=== PATIENT | male | born 1960 | race American Indian/Alaskan Native ===

== ENCOUNTER 2021-01-29 05:57 | Emergency (ER) | payer SELFPAY ==
[2021-01-29] MEDS ORDERED: SODIUM CHLORIDE 0.9% 500 ML 500 ML IV ONE (06:05)
--- NOTE | 2021-01-29 06:06 | Emergency Department Report ---
ED General Adult HPI - General Chief complaint: Weakness Stated complaint: i have a headache and im weak PUI?: No Time Seen by Provider: 01/29/21 06:03 Source: patient, RN notes reviewed Mode of arrival: Stretcher Limitations: Physical Limitation - History of Present Illness Initial comments: The patient was evaluated in the emergency department for symptoms described in the history of present illness. He/she was evaluated in the context of the global COVID-19 pandemic, which necessitated consideration that the patient migh t be at risk for infection with the virus that causes COVID-19. Institutional protocols and algorithms that pertain to the evaluation of patients at risk for COVID-19 are in a state of rapid change based on information released by regulatory bodies including the CDC and federal and state organizations. These policies and algorithms were followed during the patient's care in the emergency department. Please note that these policies, procedures and recommendations changed on a rapid basis. EMS documentation not available at time of chart dictation This is a 60-year-old gentleman. He is not known to myself. He appears to have a history of obesity, A. fib, stroke. He states he is not compliant with Xarelto/systemic anticoagulation. He presents to the ER today via EMS, with a complaint of weakness, headache, blurry vision. The patient believes his symptoms started at 430 this morning. There is no trauma. The patient denies fever. He endorses global weakness and binocular blurry vision. He makes no complaint of chest pain, abdominal pain, new/different shortness of breath. EMS reports Accu-Chek was within normal limits in the field. The patient states that he may have taken aspirin yesterday or the day before, he is not quite certain. However, he is certain that he is not taking systemic anticoagulation, and "a very long time." -: This morning Location: head Consistency: constant Improves with: none Worsens with: none - Related Data Allergies Allergy/AdvReac Type Severity Reaction Status Date / Time No Known Allergies Allergy Unverified 01/29/21 06:46 ED Review of Systems ROS: Stated complaint: POSS STROKE Other details as noted in HPI Constitutional: malaise, weakness. denies: fever Eyes: vision change. denies: eye discharge ENT: denies: epistaxis Respiratory: denies: wheezing Cardiovascular: denies: syncope Gastrointestinal: denies: abdominal pain Neurological: headache, weakness Hematological/Lymphatic: denies: easy bleeding ED Physical Exam - General Limitations: Physical Limitation General appearance: alert, obese - Head Head exam: Present: atraumatic, normocephalic - Eye Eye exam: Present: normal appearance, PERRL, EOMI. Absent: nystagmus - ENT ENT exam: Present: normal exam, normal orophraynx, mucous membranes moist, normal external ear exam - Neck Neck exam: Present: normal inspection, full ROM. Absent: tenderness, meningismus - Respiratory Respiratory exam: Present: normal lung sounds bilaterally. Absent: respiratory distress, wheezes, rales, rhonchi, stridor, decreased breath sounds - Cardiovascular Cardiovascular Exam: Present: regular rate, irregular rhythm, normal heart sounds. Absent: bradycardia, tachycardia, systolic murmur, diastolic murmur, rubs, gallop - GI/Abdominal GI/Abdominal exam: Present: soft. Absent: distended, tenderness, guarding, pulsatile mass - Rectal Rectal exam: Present: deferred - Extremities Exam Extremities exam: Present: normal inspection, full ROM, other (2+ pulses noted in the bilateral upper and lower extremities. There is no palpable cord. negative Homans sign. Muscular compartments are soft. The pelvis is stable.). Absent: pedal edema, calf tenderness - Back Exam Back exam: Present: normal inspection, full ROM. Absent: tenderness, CVA tenderness (R), CVA tenderness (L), paraspinal tenderness, vertebral tenderness - Neurological Exam Neurological exam: Present: alert, motor sensory deficit (There is 4 out of 5 strength bilateral upper extremities, and right lower extremity. There is 3 out of 5 strength left lower extremity. There is no facial droop. The tongue is midline. Sensation is intact to light touch in 4 extremities) - Psychiatric Psychiatric exam: Present: anxious - Skin Skin exam: Present: warm, dry, intact, normal color. Absent: rash ED Course Vital Signs 01/29/21 01/29/21 01/29/21 06:30 06:46 07:00 Temperature 94.9 F L Pulse Rate 80 79 87 Respiratory 16 22 21 Rate Blood Pressure 113/60 154/82 154/82 O2 Sat by Pulse 95 96 Oximetry ED Medical Decision Making - Lab Data Result diagrams: 01/29/21 06:29 01/29/21 06:29 Vital Signs 04/10/0901/29/21 01/29/21 06:30 06:46 07:00 Temperature 94.9 F L Pulse Rate 80 79 87 Respiratory 16 22 21 Rate Blood Pressure 113/60 154/82 154/82 O2 Sat by Pulse 95 96 Oximetry Lab Results 01/29/21 01/29/21 01/29/21 Range/Units 06:29 06:29 06:29 WBC 15.8 H (4.5-11.0) K/mm3 RBC 5.56 H (3.65-5.03) M/mm3 Hgb 16.4 H (11.8-15.2) gm/dl Hct 46.5 H (35.5-45.6) % MCV 84 (84-94) fl MCH 29 (28-32) pg MCHC 35 H (32-34) % RDW 15.6 H (13.2-15.2) % Plt Count 210 (140-440) K/mm3 Lymph % (Auto) 14.7 (13.4-35.0) % [place] % (Auto) 3.4 (0.0-7.3) % Eos % (Auto) 0.4 (0.0-4.3) % Baso % (Auto) 0.4 (0.0-1.8) % Lymph # (Auto) 2.3 (1.2-5.4) K/mm3 [place] # (Auto) 0.5 (0.0-0.8) K/mm3 Eos # (Auto) 0.1 (0.0-0.4) K/mm3 Baso # (Auto) 0.1 (0.0-0.1) K/mm3 Seg Neutrophils % 81.1 H (40.0-70.0) % Seg Neutrophils # 12.8 H (1.8-7.7) K/mm3 PT 13.8 (12.2-14.9) Sec. INR 1.07 (0.87-1.13) APTT 24.3 (24.2-36.6) Sec. Thrombin Time 17.3 (15.1-19.6) Sec. Sodium (137-145) mmol/L Potassium (3.6-5.0) mmol/L Chloride (98-107) mmol/L Carbon Dioxide (22-30) mmol/L Anion Gap mmol/L BUN (9-20) mg/dL Creatinine (0.8-1.3) mg/dL Estimated GFR ml/min BUN/Creatinine Ratio % Glucose (75-100) mg/dL Calcium (8.4-10.2) mg/dL Magnesium (1.7-2.3) mg/dL Total Bilirubin (0.1-1.2) mg/dL AST (5-40) units/L ALT (7-56) units/L Alkaline Phosphatase (35-129) units/L Total Creatine Kinase 150 (55-170) units/L CK-MB (CK-2) 1.6 (0.0-4.0) ng/mL CK-MB (CK-2) Rel Index 1.0 (0-4) Troponin T < 0.010 (0.00-0.029) ng/mL Total Protein (6.3-8.2) g/dL Albumin (3.9-5) g/dL Albumin/Globulin Ratio % TSH (0.270-4.200) mlU/mL Plasma/Serum Alcohol (0-0.07) % 01/29/21 01/29/21 01/29/21 Range/Units 06:29 06:29 06:29 WBC (4.5-11.0) K/mm3 RBC (3.65-5.03) M/mm3 Hgb (11.8-15.2) gm/dl Hct (35.5-45.6) % MCV (84-94) fl MCH (28-32) pg MCHC (32-34) % RDW (13.2-15.2) % Plt Count (140-440) K/mm3 Lymph % (Auto) (13.4-35.0) % [place] % (Auto) (0.0-7.3) % Eos % (Auto) (0.0-4.3) % Baso % (Auto) (0.0-1.8) % Lymph # (Auto) (1.2-5.4) K/mm3 [place] # (Auto) (0.0-0.8) K/mm3 Eos # (Auto) (0.0-0.4) K/mm3 Baso # (Auto) (0.0-0.1) K/mm3 Seg Neutrophils % (40.0-70.0) % Seg Neutrophils # (1.8-7.7) K/mm3 PT (12.2-14.9) Sec. INR (0.87-1.13) APTT (24.2-36.6) Sec. Thrombin Time (15.1-19.6) Sec. Sodium 138 (137-145) mmol/L Potassium 3.1 L (3.6-5.0) mmol/L Chloride 101.1 (98-107) mmol/L Carbon Dioxide 25 (22-30) mmol/L Anion Gap 15 mmol/L BUN 17 (9-20) mg/dL Creatinine 0.8 (0.8-1.3) mg/dL Estimated GFR > 60 ml/min BUN/Creatinine Ratio 21 % Glucose 178 H (75-100) mg/dL Calcium 8.5 (8.4-10.2) mg/dL Magnesium 2.10 (1.7-2.3) mg/dL Total Bilirubin 1.10 (0.1-1.2) mg/dL AST 17 (5-40) units/L ALT 11 (7-56) units/L Alkaline Phosphatase 109 (35-129) units/L Total Creatine Kinase 150 (55-170) units/L CK-MB (CK-2) (0.0-4.0) ng/mL CK-MB (CK-2) Rel Index (0-4) Troponin T (0.00-0.029) ng/mL Total Protein 7.2 (6.3-8.2) g/dL Albumin 3.8 L (3.9-5) g/dL Albumin/Globulin Ratio 1.1 % TSH (0.270-4.200) mlU/mL Plasma/Serum Alcohol < 0.01 (0-0.07) % 01/29/21 Range/Units 06:29 WBC (4.5-11.0) K/mm3 RBC (3.65-5.03) M/mm3 Hgb (11.8-15.2) gm/dl Hct (35.5-45.6) % MCV (84-94) fl MCH (28-32) pg MCHC (32-34) % RDW (13.2-15.2) % Plt Count (140-440) K/mm3 Lymph % (Auto) (13.4-35.0) % [place] % (Auto) (0.0-7.3) % Eos % (Auto) (0.0-4.3) % Baso % (Auto) (0.0-1.8) % Lymph # (Auto) (1.2-5.4) K/mm3 [place] # (Auto) (0.0-0.8) K/mm3 Eos # (Auto) (0.0-0.4) K/mm3 Baso # (Auto) (0.0-0.1) K/mm3 Seg Neutrophils % (40.0-70.0) % Seg Neutrophils # (1.8-7.7) K/mm3 PT (12.2-14.9) Sec. INR (0.87-1.13) APTT (24.2-36.6) Sec. Thrombin Time (15.1-19.6) Sec. Sodium (137-145) mmol/L Potassium (3.6-5.0) mmol/L Chloride (98-107) mmol/L Carbon Dioxide (22-30) mmol/L Anion Gap mmol/L BUN (9-20) mg/dL Creatinine (0.8-1.3) mg/dL Estimated GFR ml/min BUN/Creatinine Ratio % Glucose (75-100) mg/dL Calcium (8.4-10.2) mg/dL Magnesium (1.7-2.3) mg/dL Total Bilirubin (0.1-1.2) mg/dL AST (5-40) units/L ALT (7-56) units/L Alkaline Phosphatase (35-129) units/L Total Creatine Kinase (55-170) units/L CK-MB (CK-2) (0.0-4.0) ng/mL CK-MB (CK-2) Rel Index (0-4) Troponin T (0.00-0.029) ng/mL Total Protein (6.3-8.2) g/dL Albumin (3.9-5) g/dL Albumin/Globulin Ratio % TSH 1.300 (0.270-4.200) mlU/mL Plasma/Serum Alcohol (0-0.07) % - EKG Data -: EKG Interpreted by Dc Rate: normal - EKG Data When compared to previous EKG there are: previous EKG unavailable 01/29/21 06:51 EKG interpreted at 6: 40 a.m. A. fib, ventricular rate 74 bpm. Left axis deviation, left anterior fascicular block. Low voltage in the lateral leads, QTC is prolonged. This is an abnormal EKG. This is not a STEMI. There is no prior for comparison. - Radiology Data Radiology results: pending, report reviewed, image reviewed CT HEAD WITHOUT CONTRAST INDICATION: Stroke symptoms. TECHNIQUE: All CT scans at this location are performed using CT dose reduction for ALARA by means of automated exposure control. COMPARISON: None available. FINDINGS: HEMORRHAGE: There is extensive central subarachnoid hemorrhage greatest in the cisterns. There is also intraventricular hemorrhage within the frontal horns, third, and fourth ventricles. Subarachnoid hemorrhage is also noted in the cerebellum and surrounding the brainstem. EXTRA-AXIAL SPACES: Normal in size and morphology for the patient's age. CT angio head, CT angio neck HISTORY: Stroke symptoms. COMPARISON: 01/29/2021. TECHNIQUE: CTA of the neck and head is performed after IV contrast. 3-D/MIP ref ormats were postprocessed. Percentage stenosis is determined by direct quantitative measurements of diseased internal carotid artery diameter compared with normal distal internal carotid artery reference segments or by criteria similar to NASCET where applicable. All CT scans at this location are performed using CT dose reduction for ALARA by means of automated exposure control. FINDINGS: CTA NECK: Aortic arch: No significant abnormality. Cervical vertebral arteries: No occlusion or hemodynamically significant stenosis. Common Carotid arteries: No occlusion or hemodynamically significant stenosis. Internal carotid arteries: No occlusion or hemodynamically significant stenosis. CTA HEAD: Intracranial internal carotid arteries: No occlusion or significant stenosis. Anterior cerebral arteries: No occlusion or significant stenosis. Middle cerebral arteries: No occlusion or significant stenosis. Intracranial vertebral arteries: No occlusion or significant stenosis. Basilar artery: No occlusion or significant stenosis. Posterior cerebral arteries: No occlusion or significant stenosis. 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 The nidus measures approximately 2.5 cm. Is difficult to assess which arteries feed the AVM. There appears to be multiple draining veins but there is deep drainage through a dilated right superior vermian vein which drains into the vein of [place]. There are additional draining veins which are thought to be extending into the confluence of the sinuses, transverse sinuses, and left sigmoid sinus. Additional findings: Unchanged extensive subarachnoid hemorrhage surrounding the posterior fossa and intraventricular hemorrhage. No change in ventricular caliber. IMPRESSION: 1. CTA NECK: No occlusion or significant stenosis of the carotid or vertebral arteries. 2. 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 Persistent subarachnoid hemorrhage consistent with rupture. I tried to inform Dr. Martinez of this report at the 710 am but he was intubating the patient. Signer Name: Azar Nguyen MD Signed: 01/29/2021 11:38 AM Workstation Name: [id number] - Medical Decision Making Differential diagnosis, including but not limited to: Stroke, ischemic versus hemorrhagic, migraine headache, tension headache, cluster headache Assessment and plan: 60-year-old gentleman, presenting with headache, weakness, and blurry vision. He is found to have left lower extremity weakness on my examination. A code stroke was called overhead. Patient is emergently consented by myself for CT scan of the brain, CT angiogram head and neck to evaluate arterial anatomy and pertinent neurologic anatomy. The patient was found to have evidence of a subarachnoid hemorrhage. This hospital does not have neurology critical care, or surgical capability to treat subarachnoid hemorrhage, and this is an emergency medical/surgical condition, which requires transfer to a higher level of care/tertiary care center, which can provide services at this hospital was not able to provide. Initially, we had planned on reversing patient's systemic anticoagulation, with prothrombin complex concentrate, however, patient told me that he had not taken his anticoagulant "in quite some time", therefore, no indication for prothrombin complex concentrate, or anticoagulation reversal. He was also started on Cardene, given nimodipine, and loaded with Keppra. He presented with a GCS of 15. He was seen in consultation with my stroke neurologist, we appreciate their recommendations. Given presence of subarachnoid hemorrhage/intracranial blee ding, TPA is absolutely contraindicated. We contacted neurology critical care at [place], Dr. Juan, And I discussed the patient's history, physical, pertinent examination findings, and CT scan of the brain findings. Patient is excepted to the aforementioned institution by the aforementioned physician. I discussed the need for transfer with the patient, and he provided verbal consent. Patient's laboratory studies resulted after he had already been transferred out of this emergency department, because of his subarachnoid hemorrhage. The receiving physician recommended against mannitol. He was in agreement with the other medical interventions. The patient was also found to be hypothermic, which I suspect to be secondary to environmental hypothermia. Reordered active patient rewarming. His leukocytosis is likely a stress reaction. Critical Care Time: Yes Critical care time in (mins) excluding proc time.: 65 Critical care attestation.: If time is entered above; I have spent that time in minutes in the direct care of this critically ill patient, excluding procedure time. ED Disposition Clinical Impression: Subarachnoid hemorrhage, Obesity, Visual disturbance, Weakness, Atrial fibrillation, Noncompliance, Hypothermia Disposition: [id number] [facility] IP Is pt being admited?: No Does the pt Need Aspirin: No Condition: Critical Referrals: PRIMARY CARE, [Primary Care Provider] - 3-5 Days
[2021-01-29] MEDS ORDERED: METOCLOPRAMIDE 10 MG/2 ML INJ IV ONE (06:16)
[2021-01-29] MEDS ORDERED: niCARdipine DRIP 40 MG/200 ML BAG IV ONE (06:16)
[2021-01-29] MEDS ORDERED: levETIRAcetam 1000 MG/NS 0.75% 1,000 MG/100 ML BAG IV ONE (06:16)
[2021-01-29] MEDS ORDERED: niMODipine 30 MG CAP PO ONE (06:16)
--- NOTE | 2021-01-29 06:27 | Consultation ---
History of Present Illness History of present illness: [facility] Consult Note # Demographics Consult Type: Acute Stroke Level 1 (0-4.5 hrs) Patient Location: Emergency Room First Name: Kevin Last Name: Raine Date of : 1960 Age: 60 Gender: Male Time of Initial Page (): 01/29/2021, 06:04 Time of Return Call ( Time): 01/29/2021, 06:05 # HPI History: 60M with prior stroke, atrial fibrillation not clear if on blood thinner, HTN presents with blurry vision and generalized weakness. Woke at 0430 normal, and then after shower had sudden onset of generalized weakness, blurry vision, and headache. Talks very quietly, but making sense when he talks. On Xarelto. # Scores Time of exam and NIHSS (): 01/29/2021, 06:20 Level of Consciousness 1a: [0] = Alert; keenly responsive LOC Questions 1b: [0] = Answers both questions correctly LOC Commands 1c: [0] = Performs both tasks correctly Best Gaze 2: [0] = Normal Visual 3: [0] = No visual loss Facial Palsy 4: [0] = Normal symmetrical movements Motor Arm Left 5a: [0] = No drift Motor Arm Right 5b: [0] = No drift Motor Leg Left 6a: [0] = No drift Motor Leg Right 6b: [0] = No drift Limb Ataxia 7: [0] = Absent Sensory 8: [0] = Normal Best Language 9: [0] = No aphasia Dysarthria 10: [0] = Normal Extinction and Inattention 11: [0] = No abnormality NIHSS Total: 0 Estevez Merrill SAH: [2] = nuchal rigidity, mod/severe LEDBETTER, A&O, no neurologic deficit (except CN palsy) Estevez Merrill total: 2 # Data Time Head CT personally read by me (): 01/29/2021, 06:[address]: hemorrhage, diffuse subarachnoid and intraventricular hemorrhage # Assessment Impression: Subarachnoid Hemorrhage # Plan Thrombolytic/Intervention: NOT IV Thrombolytic or IA Intervention Thrombolytic Exclusion (< 3 hour window): ICH Intraarterial Exclusion: ICH Blood Pressure Management: nicardipine Target Blood Pressure: SBP < 140 Medication: levetiracetam 1g; mannitol 1g/kg ideal body weight Hemorrhage Reversal: PCC (prothrombin complex concentrate) Additional Recommendations: HOB > 30 degrees Close monitoring of airway Disposition: transfer # Logistics Telemedicine: Interactive 2 way audio and visual telecommunication technology was utilized during this visit Electronically signed at 01/29/2021 06:26 (Eastern Time) by Joe Gilliland MD Medications and Allergies Active Meds: Active Medications Sodium Chloride (Nacl 0.9% 500 Ml) 500 mls @ 999 mls/hr IV ONCE ONE Stop: 01/29/21 06:35 Levetiracetam (Keppra 1,000 Mg/Ns 0.75% 100ml) 1,000 mg in 100 mls @ 400 mls/hr IV ONCE ONE Stop: 01/29/21 06:30 Nicardipine/Sodium Chloride (Cardene Drip 40 Mg/200 Ml) 40 mg in 200 mls @ 25 mls/hr IV ONCE ONE; Protocol Stop: 01/29/21 14:15
--- NOTE | 2021-01-29 06:33 | Cat Scan Report ---
CT HEAD WITHOUT CONTRAST INDICATION: Stroke symptoms. TECHNIQUE: All CT scans at this location are performed using CT dose reduction for ALARA by means of automated e xposure control. COMPARISON: None available. FINDINGS: HEMORRHAGE: There is extensive central subarachnoid hemorrhage greatest in the cisterns. There is als o intraventricular hemorrhage within the frontal horns, third, and fourth ventricles. Subarachnoid he morrhage is also noted in the cerebellum and surrounding the brainstem. EXTRA-AXIAL SPACES: Normal in size and morphology for the patient's age. VENTRICULAR SYSTEM: Normal in size and morphology for the patient's age. BRAIN PARENCHYMA: No acute findings. MIDLINE SHIFT OR HERNIATION: None. ORBITS: Normal as visualized. SOFT TISSUES OF HEAD: Normal. CALVARIUM: Normal. VISUALIZED PARANASAL SINUSES AND MASTOID AIR CELLS: Clear. ADDITIONAL FINDINGS: None. IMPRESSION: 1. Extensive subarachnoid hemorrhage with intraventricular extension. This is concerning for ruptured aneurysm. CTA is recommended. CODE STROKE: Time of Communication (RIVET MACHINE OPERATOR/CDT): 5:27 AM Licensed Practitioner Receiving Report: Lorraine Charge Nurse Signer Name: Frank Jara MD Signed: 01/29/2021 6:28 AM Workstation Name: [id number]
[2021-01-29 06:46] LABS: Basophils # (Auto) 0.1 K/mm3 (0.0-0.1); Basophils % (Auto) 0.4 % (0.0-1.8); Eosinophils # (Auto) 0.1 K/mm3 (0.0-0.4); Eosinophils % (Auto) 0.4 % (0.0-4.3); Hematocrit 46.5 % (35.5-45.6); Hemoglobin 16.4 gm/dl (11.8-15.2); Lymphocytes # (Auto) 2.3 K/mm3 (1.2-5.4); Lymphocytes % (Auto) 14.7 % (13.4-35.0); Mean Corpuscular HGB Conc 35 % (32-34); Mean Corpuscular Volume 84 fl (84-94); Monocytes # (Auto) 0.5 K/mm3 (0.0-0.8); Monocytes % (Auto) 3.4 % (0.0-7.3); Platelet Count 210 K/mm3 (140-440); Red Blood Count 5.56 M/mm3 (3.65-5.03); Red Cell Distribution Width 15.6 % (13.2-15.2)
--- NOTE | 2021-01-29 06:51 | XRay Report ---
CHEST 1 VIEW INDICATION: cva. COMPARISON: None. FINDINGS: Support devices: None. Heart: Normal. Lungs/Pleura: There are low lung volumes with atelectatic changes in the bases. No pleural abnormalit y. IMPRESSION: 1. No acute findings. Signer Name: Frank Jara MD Signed: 01/29/2021 6:46 AM Workstation Name: [id number]
[2021-01-29 06:59] LABS: Alanine Aminotransferase 11 units/L (7-56); Albumin 3.8 g/dL (3.9-5); BUN/Creatinine Ratio 21; Blood Urea Nitrogen 17 mg/dL (9-20); Calcium 8.5 mg/dL (8.4-10.2); Hemolysis Index 4
[2021-01-29 07:08] LABS: INR 1.07 (0.87-1.13)
[2021-01-29 07:09] LABS: Partial Thromboplastin Time 24.3 Sec. (24.2-36.6); Thrombin Time 17.3 Sec. (15.1-19.6)
[2021-01-29 07:14] VITALS: BP 154/82
[2021-01-29 08:06] LABS: Creatine Kinase MB 1.6 ng/mL (0.0-4.0)
--- NOTE | 2021-01-29 12:42 | Cat Scan Report ---
CT angio head, CT angio neck HISTORY: Stroke symptoms. COMPARISON: 01/29/2021. TECHNIQUE: CTA of the neck and head is performed after IV contrast. 3-D/MIP reformats were postproces sed. Percentage stenosis is determined by direct quantitative measurements of diseased internal su tid artery diameter compared with normal distal internal carotid artery reference segments or by crit erraphael similar to NASCET where applicable. All CT scans at this location are performed using CT dose re duction for ALARA by means of automated exposure control. FINDINGS: CTA NECK: Aortic arch: No significant abnormality. Cervical vertebral arteries: No occlusion or hemodynamically significant stenosis. Common Carotid arteries: No occlusion or hemodynamically significant stenosis. Internal carotid arteries: No occlusion or hemodynamically significant stenosis. CTA HEAD: Intracranial internal carotid arteries: No occlusion or significant stenosis. Anterior cerebral arteries: No occlusion or significant stenosis. Middle cerebral arteries: No occlusion or significant stenosis. Intracranial vertebral arteries: No occlusion or significant stenosis. Basilar artery: No occlusion or significant stenosis. Posterior cerebral arteries: No occlusion or significant stenosis. There is arteriovenous malformation seen in the posterior fossa in the right superior posterior cereb ral. The nidus measures approximately 2.5 cm. Is difficult to assess which arteries feed the AVM. The re appears to be multiple draining veins but there is deep drainage through a dilated right superior vermian vein which drains into the vein of [place]. There are additional draining veins which are thoug ht to be extending into the confluence of the sinuses, transverse sinuses, and left sigmoid sinus. Additional findings: Unchanged extensive subarachnoid hemorrhage surrounding the posterior fossa and intraventricular hemorrhage. No change in ventricular caliber. IMPRESSION: 1. CTA NECK: No occlusion or significant stenosis of the carotid or vertebral arteries. 2. 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 Persistent subarac hnoid hemorrhage consistent with rupture. I tried to inform Dr. Martinez of this report at the 710 am but he was intubating the patient. Signer Name: Azar Nguyen MD Signed: 01/29/2021 12:38 PM Workstation Name: [id number]
--- NOTE | 2021-01-29 17:37 | Electrocardiograph Report ---
[facility] Test Date: 2021-01-29 Test Time: 06:35:32 Pat Name: HANANE DEXTER Department: Room: Gender: M Master Electrician: ASHLYN : 1960 Requested By: MANDO SINGH Order Number: [id number] Reading MD: Reyna Lee Measurements Intervals [place] Rate: 74 P: [place]: QRS: -39 QRSD: 106 T: 42 QT: 435 QTc: 485 Interpretive Statements Atrial fibrillation with well-controlled ventricular rate Left axis deviation No previous ECG available for comparison Electronically Signed On 01-29-2021 17:37:28 EDT by Reyna Lee
== END 2021-01-29 07:15 | disposition short-term general hospital (02) ==
LOC: ED 05:57
DX: I60.9 Nontraumatic subarachnoid hemorrhage, unspecified (principal); T68.XXXA Hypothermia, initial encounter; E66.9 Obesity, unspecified; R53.1 Weakness; I48.91 Unspecified atrial fibrillation; H53.9 Unspecified visual disturbance; Z91.19 Patient's noncompliance with other medical treatment and regimen
CPT/HCPCS: 36415; 70450; 70496; 70498; 71045; 80053; 82550; 82553; 83735; 84443; 84484; 85025; 85610; 85670; 85730; 93005; 96374; 96375; 99291; J1953; J2765; Q9967; 80320; G0480